=== PATIENT | female | born 1995 | race Caucasian/White ===

== ENCOUNTER 2017-09-01 21:55 | Emergency (ER) | payer SELFPAY ==
--- NOTE | 2017-09-01 23:26 | EDPHYS ---
Physician Documentation [facility] Name: Marisela Molina Age: 22 yrs Sex: Female : 1995 Arrival Date: 09/01/2017 Time: 21:55 Bed 19 Private MD: ED Physician Abhijit Bang HPI: 09/01 23:22 This 22 yrs old Female presents to ER via Ambulatory with complaints of arian Urinary Problem. 23:22 The patient presents with pelvic pain, that is located in/on the suprapubic area, arian urinary symptoms. Onset: The symptoms/episode began/occurred 2 day(s) ago. Modifying factors: The symptoms are alleviated by nothing, the symptoms are aggravated by nothing. Associated signs and symptoms: The patient has no apparent associated signs or symptoms. Severity of symptoms: At their worst the symptoms were mild, moderate, in the emergency department the symptoms are unchanged. The patient is sexually active. The patient has experienced similar episodes in the past, several times. 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 - Social history:: Smoking status: Patient/guardian denies using tobacco. - Ebola Screening: : Patient denies travel to an Ebola-affected area in the 21 days before illness onset. - Family history:: not pertinent. ROS: 23:22 Constitutional: Negative for fever, chills, and weight loss, Eyes: Negative for injury, arian pain, redness, and discharge, ENT: Negative for injury, pain, and discharge, Neck: Negative for injury, pain, and swelling, Cardiovascular: Negative for chest pain, palpitations, and edema, Respiratory: Negative for shortness of breath, cough, wheezing, and pleuritic chest pain, Back: Negative for injury and pain, MS/Extremity: Negative for injury and deformity, Skin: Negative for injury, rash, and discoloration, Neuro: Negative for headache, weakness, numbness, tingling, and seizure, Psych: Negative for depression, anxiety, suicide ideation, homicidal ideation, and hallucinations, Allergy/Immunology: Negative for hives, rash, and allergies, Endocrine: Negative for neck swelling, polydipsia, polyuria, polyphagia, and marked weight changes, Hematologic/Lymphatic: Negative for swollen nodes, abnormal bleeding, and unusual bruising. 23:22 Abdomen/GI: Positive for abdominal pain, of the suprapubic area, posterior aspect of right lateral abdomen and posterior aspect of left lateral abdomen. 23:22 : Positive for urinary symptoms, flank pain, urinary frequency, small amounts, burning with urination, difficulty urinating. Exam: 23:22 Constitutional: This is a well developed, well nourished patient who is awake, alert, arian and in no acute distress. Head/Face: Normocephalic, atraumatic. Eyes: Pupils equal round and reactive to light, extra-ocular motions intact. Lids and lashes normal. Conjunctiva and sclera are non-icteric and not injected. Cornea within normal limits. Periorbital areas with no swelling, redness, or edema. ENT: Nares patent. No nasal discharge, no septal abnormalities noted. Tympanic membranes are normal and external auditory canals are clear. Oropharynx with no redness, swelling, or masses, exudates, or evidence of obstruction, uvula midline. Mucous membranes moist. Neck: Trachea midline, no thyromegaly or masses palpated, and no cervical lymphadenopathy. Supple, full range of motion without nuchal rigidity, or vertebral point tenderness. No Meningismus. Chest/axilla: Normal chest wall appearance and motion. Nontender with no deformity. No lesions are appreciated. Cardiovascular: Regular rate and rhythm with a normal S1 and S2. No gallops, murmurs, or rubs. Normal PMI, no JVD. No pulse deficits. Respiratory: Lungs have equal breath sounds bilaterally, clear to auscultation and percussion. No rales, rhonchi or wheezes noted. No increased work of breathing, no retractions or nasal flaring. Back: No spinal tenderness. No costovertebral tenderness. Full range of motion. Female : Normal external genitalia. Skin: Warm, dry with normal turgor. Normal color with no rashes, no lesions, and no evidence of cellulitis. MS/ Extremity: Pulses equal, no cyanosis. Neurovascular intact. Full, normal range of motion. Neuro: Awake and alert, GCS 15, oriented to person, place, time, and situation. Cranial nerves II-XII grossly intact. Motor strength 5/5 in all extremities. Sensory grossly intact. Cerebellar exam normal. Normal gait. Psych: Awake, alert, with orientation to person, place and time. Behavior, mood, and affect are within normal limits. 23:22 Abdomen/GI: Inspection: distension, Bowel sounds: normal, Palpation: mild abdominal tenderness, in the suprapubic area, Liver: no appreciated palpable abnormalities, Hernia: not appreciated. Vital Signs: 22:00 BP 142 / 94; Pulse 103; Resp 18; Temp 97.7; Pulse Ox 97% on R/A; Weight 81.65 kg; aj1 Height 5 ft. 6 in. (167.64 cm) (R); Pain 9/10; 09/02 00:30 BP 135 / 84; Pulse 90; Resp 16; Pulse Ox 98% ; bp 09/01 22:00 Body Mass Index 29.05 (81.65 kg, 167.64 cm) aj1 MDM: 09/01 22:11 Patient medically screened. [facility] 23:24 Data reviewed: vital signs, nurses notes, lab test result(s), CBC, electrolytes, [facility] urinalysis. 09/01 23:09 Order name: Urine Dipstick--Ancillary (enter results); Complete Time: 00:08 09/01 23:20 Order name: CBC with Diff; Complete Time: 00:08 [facility] 09/01 23:20 Order name: Chem 7; Complete Time: 00:38 [facility] 09/01 23:20 Order name: Test, Serum; Complete Time: 00:38 [facility] 09/01 23:03 Order name: Urine Dipstick-Ancillary (obtain specimen); Complete Time: 23:03 bp 09/01 23:03 Order name: Urine Test (obtain specimen); Complete Time: 23:03 bp Administered Medications: 23:43 Drug: Cipro 500 mg Route: PO; bp 09/02 00:19 Follow up: Response: No adverse reaction bp 09/01 23:43 Drug: NS 0.9% 1000 ml Route: IV; Rate: 1 bolus; Site: right antecubital; bp 09/02 00:48 Follow up: IV Status: Completed infusion bp 09/01 23:43 Drug: Rocephin - (cefTRIAXone) 1 grams Route: IVPB; Infused Over: 30 mins; Site: right bp antecubital; 09/02 00:19 Follow up: IV Status: Completed infusion bp Disposition: 09/01/17 23:25 Discharged to Home. Impression: Cystitis, Dysuria. - Condition is Stable. - Discharge Instructions: Dysuria, Urinary Tract Infection, Urinary Tract Infection, [id number]. - Prescriptions for Tylenol- Codeine #3 300-30 mg Oral Tablet - take 2 tablets by ORAL route every 6 hours As needed; 15 tablet. Cipro 500 mg Oral Tablet - take 1 tablet by ORAL route every 12 hours for 7 days; 14 tablet. - Medication Reconciliation Form, Thank You Letter, Antibiotic Education, Prescription Opioid Use form. - Follow up: Private Physician; When: 2 - 3 days; Reason: Recheck today's complaints, Continuance of care, Re-evaluation by your physician. - Problem is new. - Symptoms have improved. Signatures: Dispatcher [employer] Laila Medel RN RN aj1 Abhijit Bang MD MD cha Peltier, Brian RN RN bp Corrections: (The following items were deleted from the chart) 00:49 09/01 23:25 09/01/2017 23:25 Discharged to Home. Impression: Cystitis; Dysuria. bp Condition is Stable. Forms are Medication Reconciliation Form, Thank You Letter, Antibiotic Education, Prescription Opioid Use. Follow up: Private Physician; When: 2 - 3 days; Reason: Recheck today's complaints, Continuance of care, Re-evaluation by your physician. Problem is new. Symptoms have improved. arian
--- NOTE | 2017-09-01 23:26 | ER ---
Nurse's Notes [facility] Name: Marisela Molina Age: 22 yrs Sex: Female : 1995 Arrival Date: 09/01/2017 Time: 21:55 Bed 19 Private MD: Diagnosis: Cystitis;Dysuria Presentation: 09/01 21:57 Presenting complaint: Patient states: Burning with urination and suprapubic pressure aj1 for the past 3 days. States she has been taking Azo, but they are not helping with the pain anymore. Denies fever. Transition of care: patient was not received from another setting of care. Onset of symptoms was August 29, 2017. Risk Assessment: Do you want to hurt yourself or someone else? Patient reports no desire to harm self or others. Initial Sepsis Screen: Does the patient meet any 2 criteria? No. Patient's initial sepsis screen is negative. Does the patient have a suspected source of infection? No. Patient's initial sepsis screen is negative. Care prior to arrival: None. 21:57 Method Of Arrival: Ambulatory aj1 21:57 Acuity: NING 4 aj1 Triage Assessment: 22:00 General: Appears in no apparent distress. uncomfortable, Behavior is calm, cooperative, aj1 appropriate for age. Pain: Complains of pain in suprapubic area Pain does not radiate. Pain currently is 9 out of 10 on a pain scale. Quality of pain is described as burning, Pain began 2-3 days ago. Is continuous, Aggravated by urinating. EENT: No signs and/or symptoms were reported regarding the EENT system. Neuro: Level of Consciousness is awake, alert, obeys commands, Oriented to person, place, time, situation. Cardiovascular: Patient's skin is warm and dry. Respiratory: Airway is patent Respiratory effort is even, unlabored, Respiratory pattern is regular, symmetrical. GI: : Reports burning with urination, urgency, urinary frequency, Denies discharge. Derm: No signs and/or symptoms reported regarding the dermatologic system. Skin is pink, warm \T\ dry. normal. Musculoskeletal: No signs and/or symptoms reported regarding the musculoskeletal system. Circulation, motion, and sensation intact. 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 - Social history:: Smoking status: Patient/guardian denies using tobacco. - Ebola Screening: : Patient denies travel to an Ebola-affected area in the 21 days before illness onset. - Family history:: not pertinent. Screenin:57 Abuse screen: Denies threats or abuse. Denies injuries from another. Nutritional bp screening: No deficits noted. Tuberculosis screening: No symptoms or risk factors identified. Fall Risk None identified. Assessment: 22:00 General: Appears in no apparent distress. comfortable, Behavior is calm, cooperative, bp appropriate for age. Pain: Denies pain. Neuro: Level of Consciousness is awake, alert, obeys commands, Oriented to person, place, time, situation, Appropriate for age. Cardiovascular: No deficits noted. Respiratory: Airway is patent Respiratory effort is even, unlabored, Respiratory pattern is regular, symmetrical. GI: No signs and/or symptoms were reported involving the gastrointestinal system. : Reports burning with urination. EENT: No deficits noted. Derm: No deficits noted. Musculoskeletal: Circulation, motion, and sensation intact. Range of motion: intact in all extremities. 23:45 Reassessment: PT TBDC AFTER IVF AND LAB RESULTS. bp 09/02 00:47 Reassessment: PT D/C HOME AMBULATORY WITH FAMILY, DX WITH CYSTITIS AND DYSURIA. bp Vital Signs: 09/01 22:00 BP 142 / 94; Pulse 103; Resp 18; Temp 97.7; Pulse Ox 97% on R/A; Weight 81.65 kg; aj1 Height 5 ft. 6 in. (167.64 cm) (R); Pain 9/10; 09/02 00:30 BP 135 / 84; Pulse 90; Resp 16; Pulse Ox 98% ; bp 09/01 22:00 Body Mass Index 29.05 (81.65 kg, 167.64 cm) aj1 ED Course: 09/01 21:55 Patient arrived in ED. es 22:00 Triage completed. aj1 22:00 Arm band placed on. aj1 22:03 Patient placed in an exam room. aj1 22:08 Maurice Johnson, RN is Primary Nurse. bp 22:11 Abhijit Bang MD is Attending Physician. [facility] 22:57 Patient has correct armband on for positive identification. Bed in low position. Call bp light in reach. Side rails up X2. Adult w/ patient. 23:30 Inserted saline lock: 20 gauge in right antecubital area, using aseptic technique. bp Blood collected. 09/02 00:47 No provider procedures requiring assistance completed. IV discontinued, intact, bp bleeding controlled, No redness/swelling at site. Pressure dressing applied. Administered Medications: 09/01 23:43 Drug: Cipro 500 mg Route: PO; bp 09/02 00:19 Follow up: Response: No adverse reaction bp 09/01 23:43 Drug: NS 0.9% 1000 ml Route: IV; Rate: 1 bolus; Site: right antecubital; bp 09/02 00:48 Follow up: IV Status: Completed infusion bp 09/01 23:43 Drug: Rocephin - (cefTRIAXone) 1 grams Route: IVPB; Infused Over: 30 mins; Site: right bp antecubital; 09/02 00:19 Follow up: IV Status: Completed infusion bp Outcome: 09/01 23:25 Discharge ordered by . [facility] 09/02 00:48 Discharged to home ambulatory, with family. bp Condition: stable Discharge instructions given to patient, Instructed on discharge instructions, follow up and referral plans. medication usage, Demonstrated understanding of instructions, follow-up care, medications, Prescriptions given X 2. 00:49 Patient left the ED. bp Signatures: Laila Shields, RN RN aj1 Abhijit Bang MD MD cha Salyer, Edna es Peltier, Brian RN RN bp
[2017-09-01] MEDS ORDERED: CEFTRIAXONE/SWI 1gm 1 GM/10 ML SYR ONE (23:40)
[2017-09-01] MEDS ORDERED: CIPROFLOXACIN HCL 500 MG TAB ONE (23:40)
[2017-09-01] MEDS ORDERED: NA CHLORIDE 0.9% 1,000 ML ONE (23:41)
[2017-09-01 23:47] LABS: Absolute Lymphocytes (CBC) 3.5 K/uL (0.7-4.9); Absolute Neutrophil 12.3 K/uL (1.8-8.0); Basophils % 0.8 % (0-1.3); Eosinophils % 0.3 % (0-4.4); Hematocrit 42.8 % (36.0-45.0); Lymphocytes % 20.6 % (15.3-44.8); MCH 28.5 pg (27.0-35.0); MCV 84.1 fL (80-100); MPV 8.6 fL (7.6-11.3); RBC Red Blood Cell Count 5.08 M/uL (3.86-4.86)
[2017-09-01 23:48] LABS: Urine Blood 3+ (NEG); Urine Glucose 1+ (NEG); Urine Protein 3+ (NEG); Urine Specific Gravity 1.005 (1.005-1.030)
[2017-09-02 00:02] LABS: BUN Blood Urea Nitrogen 9 mg/dL (7-18); Bicarbonate 29 mmol/L (21-32); Glucose Level 83 mg/dL (74-106); Potassium 3.5 mmol/L (3.5-5.1); Sodium Level 136 mmol/L (136-145)
== END 2017-09-02 00:49 | disposition home or self-care (01) ==
LOC: ER 21:55
DX: N30.90 Cystitis, unspecified without hematuria (principal)
CPT/HCPCS: 36415; 80048; 81003; 84703; 85025; 96365; 99284; J0696; J7030

== ENCOUNTER 2022-07-31 22:41 | Emergency (ER) | payer OTHER, SELFPAY ==
--- OUTSIDE RECORDS SUMMARY | 2022-07-31 22:47 | XMS REPORT | Continuity of Care Document ---
:1995 Author Organization [facility] t Address [address] [facility] [address] [place] [id number] Care Team Providers Name Role Phone ZOHREH ALVARADO Primary Care Physician Unavailable KAIT ARZATE Attending Clinician Unavailable Kait Arzate MD Attending Clinician Ultrasound, Adc Mfm Attending Clinician Unavailable Andriy Billy MD Attending Clinician ANDRIY BILLY Attending Clinician Unavailable Pob, Adc Lab Main Attending Clinician Unavailable 2, Adc Lab Attending Clinician Unavailable Jolene Verdugo RN Attending Clinician Unavailable Amalia Victoria PA-C Attending Clinician Doctor Unassigned, [place] Attending Clinician Unavailable ROSANNA HOWARD Attending Clinician Unavailable Zohreh Berumen Attending Clinician Lab, Ang - Db Attending Clinician Unavailable ZOHREH ALVARADO Attending Clinician Unavailable JAZZY SALAZAR Attending Clinician Unavailable Payers Payer Name Policy Type Policy Number Effective Date Expiration Date S ource MEDICAID [place] [id number] 2022 00:00:00 Problems Condition Condition Condition Status Onset Resolution Last Treating Co mments Source Name Details Category Date Date Treatment Clinician Date High-risk High-risk Disease Active Uni vers 2-20 ity of in second in second 00:00: Gladys s trimester trimester 00 [facility] Branch Obesity Obesity Disease Active Univers (BMI (BMI 2-20 ity of 30-39.9) 30-39.9) 00:00: [address] Branch Obesity in Obesity in Disease Active U nivers 2-20 ity of 00:: [place] [facility] Nausea and Nausea and Disease Active U nivers vomiting vomiting 2-20 ity of during during 00:: [place] 00 Medi ty prior to prior to Branch 22 weeks 22 weeks gestation gestation Gastroesop Gastroesop Disease Active U nivers hageal hageal 2-20 ity of reflux reflux 00:00: [place] disease, disease, 00 Medica l unspecifie unspecifie Br anch d whether d whether esophagiti esophagiti s present s present Skin Skin Disease Active Univers lesion lesion 2-20 ity of 00:: [place] [facility] Absence of Absence of Disease Active U nivers menstruati menstruati 8-05 it y of on on 00:: [place] [address] Medical [place] Venereal Venereal Disease Active Unive rs disease disease 8-05 ity of contact contact 00:00: [place] [address] Medical [place] Allergies, Adverse Reactions, Alerts Allergy Allergy Status Severity Reaction(s) Onset Inactive Treating Comm ents Source Name Type Date Date Clinician NO KNOWN Drug Active Univers ALLERGIE Class ity of S [facility] Social History Social Habit Start Date Stop Date Quantity Comments Source ASSERTION 2022-03-08 Mobile of 00:00:00 [facility] History [facility] o f Alcohol Std [place] [facility] Branch History [facility] o f Alcohol Binge [facility] [place] Exposure to 2022-07-18 2022-07-28 Not sure [facility] SARS-CoV-2 00:00:00 13:15:00 [facility] (event) Branch Alcohol intake 2022-07-28 2022-07-28 Ex-drinker Mobile of 00:00:00 00:00:00 (finding) [facility] Tobacco use and 2022-05-04 2022-05-04 Smokeless tobacco Un iversity of exposure 00:00:00 00:00:00 non-user [facility] Alcohol Comment 2021-01-17 2021-01-17 very rarely Universi ty of 00:00:00 00:00:00 [facility] History SDOH 2018-10-17 2018-10-17 1 University o f Alcohol Frequency 00:00:00 00:00:00 [facility] edical [place] Sex Assigned At [birth year] [facility] y of 00:00:00 00:00:00 [facility] Smoking Status Start Date Stop Date Source Never smoked tobacco [facility] [place] Medications Ordered Filled Start Stop Current Ordering Indication Dosage Frequency Signature Comments Components Source Medication Medication Date Date Medication? Clinician (SIG) Name Name pantoprazol Yes Take by Uni vers e sodium 5-16 mouth. ity of (PANTOPRAZO 14:36: [place] LE ORAL) 09 Medical Branch pantoprazol 2022- No pantoprazo Univers e 40 mg EC 4-04 04-04 le 40 mg ity of tablet 09:30: 00[place]00 [facility]ed [facility] Branch pantoprazol Yes Take by Uni vers e sodium 4-04 mouth. ity of (PANTOPRAZO 09:23: [place] LE ORAL) 41 Medical Branch pantoprazol Yes Take by Uni vers e sodium 4-04 mouth. ity of (PANTOPRAZO 09:23: [place] LE ORAL) 41 Medical Branch pantoprazol Yes Take by Uni vers e sodium 4-04 mouth. ity of (PANTOPRAZO 09:23: [place] LE ORAL) 41 Medical Branch pantoprazol Yes Take by Uni vers e sodium 4-04 mouth. ity of (PANTOPRAZO 09:23: [place] LE ORAL) 41 [facility] Branch pantoprazol Yes Take by Uni vers e sodium 4-04 mouth. ity of (PANTOPRAZO 09:23: [place] LE ORAL) 41 Medical Branch pantoprazol Yes Take by Uni vers e sodium 4-04 mouth. ity of (PANTOPRAZO 09:23: [place] LE ORAL) 41 Medical Branch pantoprazol Yes Take by Uni vers e sodium 4-04 mouth. ity of (PANTOPRAZO 09:23: [place] LE ORAL) 41 [facility] Branch pantoprazol Yes Take by Uni vers e sodium 4-04 mouth. ity of (PANTOPRAZO 09:23: [place] LE ORAL) 41 Medical Branch pantoprazol 2022- Yes 40mg Take 1 Uni vers e 40 mg EC 4-04 -03 tablet by ity of tablet 00:00: 04:59 mouth in [place] 00 :00 the Medical morning Branch for 120 days. pantoprazol 2023-0 2023- Yes 40mg Take 1 Uni vers e 40 mg EC 4-04 08-03 tablet by ity of tablet 00:00: 04:59 mouth in [place] 00 :00 the Medical morning Branch for 120 days. pantoprazol 2023-0 2023- Yes 40mg Take 1 Uni vers e 40 mg EC 4-04 08-03 tablet by ity of tablet 00:00: 04:59 mouth in [place] 00 :00 the Medical morning Branch for 120 days. pantoprazol 2023-0 2023- Yes 40mg Take 1 Uni vers e 40 mg EC 4- 08-03 tablet by ity of tablet 00:00: 04:59 mouth in [place] 00 :00 the [facility] morning Branch for 120 days. pantoprazol 2023-0 3- Yes 40mg Take 1 Uni vers e 40 mg EC 4-06 20-03 tablet by ity of tablet 00:00: 04:59 mouth in [place] 00 :00 the Medical morning Branch for 120 days. pantoprazol 2023-0 2023- Yes 40mg Take 1 Uni vers e 40 mg EC 4-06 20-03 tablet by ity of tablet 00:00: 04:59 mouth in [place] 00 :00 the [facility] Branch for 120 days. pantoprazol 2023-0 2023- Yes 40mg Take 1 Uni vers e 40 mg EC 4-04 08-03 tablet by ity of tablet 00:00: 04:59 mouth in [place] 00 :00 the [facility] morning Branch for 120 days. pantoprazol 2023-0 2023- Yes 40mg Take 1 Uni vers e 40 mg EC 4-06 20-03 tablet by ity of tablet 00:00: 04:59 mouth in [place] 00 :00 the [facility] morning Branch for 120 days. pantoprazol 2023-0 2023- Yes 40mg Take 1 Uni vers e 40 mg EC 4-04 08-03 tablet by ity of tablet 00:00: 04:59 mouth in [place] 00 :00 the [facility] Branch for 120 days. pantoprazol 2023-0 Yes Take by Uni vers e sodium 3-22 mouth. ity of (PANTOPRAZO 10:31: [place] LE ORAL) 25 [facility] Branch pantoprazol 2023-0 Yes Take by Uni vers e sodium 3-22 mouth. ity of (PANTOPRAZO 10:31: [place] LE ORAL) 25 Medical Branch pantoprazol Yes Take by Uni vers e sodium 3-22 mouth. ity of (PANTOPRAZO 10:31: [place] LE ORAL) 25 Medical Branch pantoprazol Yes Take by Uni vers e sodium 3-22 mouth. ity of (PANTOPRAZO 10:31: [place] LE ORAL) 25 Medical Branch metroNIDAZO 2022- Yes [id number] 500mg Take 1 Univers LE (FLAGYL) 05-06 tablet by it y of 500 mg 00:00: 05:59 mouth in [place] tablet 00 :00 the Medical morning Branch and 1 tablet in the evening. Do all this for 7 days. pantoprazol 2022- No 40mg Take 40 mg Univers e 40 mg EC -05-04 by mouth ity of tablet 11:22: 00:00 daily. [place] 55 :00 Medical Branch PNV 0 Yes Take by Univers no.95/jens 2-20 mouth. ity of 11:09: [place] fum/folic 15 Medical ac Branch ( ORAL) PNV 0 Yes Take by Univers no.95/jens 2-20 mouth. ity of 11:09: [place] fum/folic 15 Medical ac Branch ( ORAL) PNV 0 Yes Take by Univers no.95/jens 2-20 mouth. ity of 11:09: [place] fum/folic 15 Medical ac Branch ( ORAL) PNV 0 Yes Take by Univers no.95/jens 2-20 mouth. ity of 11:09: [place] fum/folic 15 Medical ac Branch ( ORAL) PNV 0 Yes Take by Univers no.95/jens 2-20 mouth. ity of 11:09: [place] fum/folic 15 Medical ac Branch ( ORAL) PNV 0 Yes Take by Univers no.95/jens 2-20 mouth. ity of 11:09: [place] fum/folic 15 Medical ac Branch ( ORAL) PNV 0 Yes Take by Univers no.95/jens 2-20 mouth. ity of 11:09: [place] fum/folic 15 Medical ac Branch ( ORAL) PNV 0 Yes Take by Univers no.95/jens 2-20 mouth. ity of us 11:09: [place] fum/folic 15 Medical ac Branch ( ORAL) PNV 2022-0 Yes Take by Univers no.95/jens 2-20 mouth. ity of us 11:09: [place] fum/folic 15 Medical ac Branch ( ORAL) PNV 2022-0 Yes Take by Univers no.95/jens 2-20 mouth. ity of us 11:09: [place] fum/folic 15 Medical ac Branch ( ORAL) PNV 2022-0 Yes Take by Univers no.95/jens 2-20 mouth. ity of us 11:09: [place] fum/folic 15 Medical ac Branch ( ORAL) PNV 2022-0 Yes Take by Univers no.95/jens 2-20 mouth. ity of us 11:09: [place] fum/folic 15 Medical ac Branch ( ORAL) PNV 2022-0 Yes Take by Univers no.95/jens 2-20 mouth. ity of us 11:09: [place] fum/folic 15 Medical ac Branch ( ORAL) PNV 2022-0 Yes Take by Univers no.95/jens 2-20 mouth. ity of us 11:09: [place] fum/folic 15 Medical ac Branch ( ORAL) PNV 2022-0 Yes Take by Univers no.95/jens 2-20 mouth. ity of us 11:09: [place] fum/folic 15 Medical ac Branch ( ORAL) PNV 2022-0 Yes Take by Univers no.95/jens 2-20 mouth. ity of us 11:09: [place] fum/folic 15 Medical ac Branch ( ORAL) PNV 2022-0 Yes Take by Univers no.95/jens 2-20 mouth. ity of us 11:09: [place] fum/folic 15 Medical ac Branch ( ORAL) PNV 2022-0 Yes Take by Univers no.95/jens 2-20 mouth. ity of us 11:09: [place] fum/folic 15 Medical ac Branch ( ORAL) PNV 2022-0 Yes Take by Univers no.95/jens 2-20 mouth. ity of us 11:09: [place] fum/folic 15 Medical ac Branch ( ORAL) PNV 2022-0 Yes Take by Univers no.95/jens 2-20 mouth. ity of us 11:09: [place] fum/folic 15 Medical ac Branch ( ORAL) PNV 0 Yes Take by Univers no.95/jens 2-20 mouth. ity of us 11:09: [place] fum/folic 15 Medical ac Branch ( ORAL) PNV 0 Yes Take by Univers no.95/jens 2-20 mouth. ity of us 11:09: [place] fum/folic 15 Medical ac Branch ( ORAL) pyridoxine, 0 Yes [id number] 25mg Take 1 Univers VITAMIN 2-20 tablet by ity of B-6, 00:00: mouth [place] (VITAMIN 00 every 6 Medical B-6) 25 mg (six) Branch tablet hours as needed for Nausea and Vomiting (N/V). doxylamine 0 Yes [id number] 25mg Take 1 U nivers (UNISOM, 2-20 tablet by ity of DOXYLAMINE, 00:00: [place] 25 mg 00 bedtime as Medica l tablet needed for Branch Nausea and Vomiting (N/V). metoclopram 0 Yes [id number] 10mg Take 1 Univers melissa HCl 10 2-20 tablet by ity of mg tablet 00:00: mouth [place] 00 every 6 Medical (six) Branch hours as needed for Nausea and Vomiting (N/V). pyridoxine, 2022-0 Yes [id number] 25mg Take 1 Univers VITAMIN 2-20 tablet by ity of B-6, 00:00: mouth [place] (VITAMIN 00 every 6 Medical B-6) 25 mg (six) Branch tablet hours as needed for Nausea and Vomiting (N/V). doxylamine 0 Yes [id number] 25mg Take 1 U nivers (UNISOM, 2-20 tablet by ity of DOXYLAMINE, 00:00: [place] 25 mg 00 bedtime as Medica l tablet needed for Branch Nausea and Vomiting (N/V). metoclopram 2022-0 Yes [id number] 10mg Take 1 Univers melissa HCl 10 2-20 tablet by ity of mg tablet 00:00: mouth [place] 00 every 6 Medical (six) Branch hours as needed for Nausea and Vomiting (N/V). pyridoxine, 2022-0 Yes [id number] 25mg Take 1 Univers VITAMIN 2-20 tablet by ity of B-6, 00:00: mouth [place] (VITAMIN 00 every 6 Medical B-6) 25 mg (six) Branch tablet hours as needed for Nausea and Vomiting (N/V). doxylamine 2023-0 Yes [id number] 25mg Take 1 U nivers (UNISOM, 2-20 tablet by ity of DOXYLAMINE, 00:00: [place] 25 mg 00 bedtime as Medica l tablet needed for Branch Nausea and Vomiting (N/V). metoclopram 2023-0 Yes [id number] 10mg Take 1 Univers melissa HCl 10 2-20 tablet by ity of mg tablet 00:00: mouth [place] 00 every 6 Medical (six) Branch hours as needed for Nausea and Vomiting (N/V). pyridoxine, 3-0 Yes [id number] 25mg Take 1 Univers VITAMIN 2-20 tablet by ity of B-6, 00:00: mouth [place] (VITAMIN 00 every 6 Medical B-6) 25 mg (six) Branch tablet hours as needed for Nausea and Vomiting (N/V). doxylamine 3-0 Yes [id number] 25mg Take 1 U nivers (UNISOM, 2-20 tablet by ity of DOXYLAMINE, 00:00: [place] 25 mg 00 bedtime as Medica l tablet needed for Branch Nausea and Vomiting (N/V). metoclopram 3-0 Yes [id number] 10mg Take 1 Univers melissa HCl 10 2-20 tablet by ity of mg tablet 00:00: mouth [place] 00 every 6 Medical (six) Branch hours as needed for Nausea and Vomiting (N/V). pyridoxine, 3-0 Yes [id number] 25mg Take 1 Univers VITAMIN 2-20 tablet by ity of B-6, 00:00: mouth [place] (VITAMIN 00 every 6 Medical B-6) 25 mg (six) Branch tablet hours as needed for Nausea and Vomiting (N/V). doxylamine 2023-0 Yes [id number] 25mg Take 1 U nivers (UNISOM, 2-20 tablet by ity of DOXYLAMINE, 00:00: [place] 25 mg 00 bedtime as Medica l tablet needed for Branch Nausea and Vomiting (N/V). metoclopram 2023-0 Yes [id number] 10mg Take 1 Univers melissa HCl 10 2-20 tablet by ity of mg tablet 00:00: mouth [place] 00 every 6 Medical (six) Branch hours as needed for Nausea and Vomiting (N/V). pyridoxine, 2022-0 Yes [id number] 25mg Take 1 Univers VITAMIN 2-20 tablet by ity of B-6, 00:00: mouth [place] (VITAMIN 00 every 6 Medical B-6) 25 mg (six) Branch tablet hours as needed for Nausea and Vomiting (N/V). doxylamine 2022-0 Yes [id number] 25mg Take 1 U nivers (UNISOM, 2-20 tablet by ity of DOXYLAMINE, 00:00: [place] ) 25 mg 00 bedtime as Medica l tablet needed for Branch Nausea and Vomiting (N/V). metoclopram 2022-0 Yes [id number] 10mg Take 1 Univers melissa HCl 10 2-20 tablet by ity of mg tablet 00:00: mouth [place] 00 every 6 Medical (six) Branch hours as needed for Nausea and Vomiting (N/V). pyridoxine, 2022-0 Yes [id number] 25mg Take 1 Univers VITAMIN 2-20 tablet by ity of B-6, 00:00: mouth [place] (VITAMIN 00 every 6 Medical B-6) 25 mg (six) Branch tablet hours as needed for Nausea and Vomiting (N/V). doxylamine 2022-0 Yes [id number] 25mg Take 1 U nivers (UNISOM, 2-20 tablet by ity of DOXYLAMINE, 00:00: [place] 25 mg 00 bedtime as Medica l tablet needed for Branch Nausea and Vomiting (N/V). metoclopram 2022-0 Yes [id number] 10mg Take 1 Univers melissa HCl 10 2-20 tablet by ity of mg tablet 00:00: mouth [place] 00 every 6 Medical (six) Branch hours as needed for Nausea and Vomiting (N/V). pyridoxine, 2022-0 Yes [id number] 25mg Take 1 Univers VITAMIN 2-20 tablet by ity of B-6, 00:00: mouth [place] (VITAMIN 00 every 6 Medical B-6) 25 mg (six) Branch tablet hours as needed for Nausea and Vomiting (N/V). doxylamine 2023-0 Yes [id number] 25mg Take 1 U nivers (UNISOM, 2-20 tablet by ity of DOXYLAMINE, 00:00: [place] 25 mg 00 bedtime as Medica l tablet needed for Branch Nausea and Vomiting (N/V). metoclopram 2023-0 Yes [id number] 10mg Take 1 Univers melissa HCl 10 2-20 tablet by ity of mg tablet 00:00: mouth [place] 00 every 6 Medical (six) Branch hours as needed for Nausea and Vomiting (N/V). pyridoxine, 2022-0 Yes [id number] 25mg Take 1 Univers VITAMIN 2-20 tablet by ity of B-6, 00:00: mouth [place] (VITAMIN 00 every 6 Medical B-6) 25 mg (six) Branch tablet hours as needed for Nausea and Vomiting (N/V). doxylamine 2023-0 Yes [id number] 25mg Take 1 U nivers (UNISOM, 2-20 tablet by ity of DOXYLAMINE, 00:00: [place] ) 25 mg 00 bedtime as Medica l tablet needed for Branch Nausea and Vomiting (N/V). metoclopram 3-0 Yes [id number] 10mg Take 1 Univers melissa HCl 10 2-20 tablet by ity of mg tablet 00:00: mouth [place] 00 every 6 Medical (six) Branch hours as needed for Nausea and Vomiting (N/V). pyridoxine, 3-0 Yes [id number] 25mg Take 1 Univers VITAMIN 2-20 tablet by ity of B-6, 00:00: mouth [place] (VITAMIN 00 every 6 Medical B-6) 25 mg (six) Branch tablet hours as needed for Nausea and Vomiting (N/V). doxylamine 2023-0 Yes [id number] 25mg Take 1 U nivers (UNISOM, 2-20 tablet by ity of DOXYLAMINE, 00:00: [place] ) 25 mg 00 bedtime as Medica l tablet needed for Branch Nausea and Vomiting (N/V). metoclopram 2023-0 Yes [id number] 10mg Take 1 Univers melissa HCl 10 2-20 tablet by ity of mg tablet 00:00: mouth [place] 00 every 6 Medical (six) Branch hours as needed for Nausea and Vomiting (N/V). pyridoxine, 3-0 Yes [id number] 25mg Take 1 Univers VITAMIN 2-20 tablet by ity of B-6, 00:00: mouth [place] (VITAMIN 00 every 6 Medical B-6) 25 mg (six) Branch tablet hours as needed for Nausea and Vomiting (N/V). doxylamine 2022-0 Yes [id number] 25mg Take 1 U nivers (UNISOM, 2-20 tablet by ity of DOXYLAMINE, 00:00: [place] ) 25 mg 00 bedtime as Medica l tablet needed for Branch Nausea and Vomiting (N/V). metoclopram 2023-0 Yes [id number] 10mg Take 1 Univers melissa HCl 10 2-20 tablet by ity of mg tablet 00:00: mouth [place] 00 every 6 Medical (six) Branch hours as needed for Nausea and Vomiting (N/V). pyridoxine, 2022-0 Yes [id number] 25mg Take 1 Univers VITAMIN 2-20 tablet by ity of B-6, 00:00: mouth [place] (VITAMIN 00 every 6 Medical B-6) 25 mg (six) Branch tablet hours as needed for Nausea and Vomiting (N/V). doxylamine 2022-0 Yes [id number] 25mg Take 1 U nivers (UNISOM, 2-20 tablet by ity of DOXYLAMINE, 00:00: [place] ) 25 mg 00 bedtime as Medica l tablet needed for Branch Nausea and Vomiting (N/V). metoclopram 3-0 Yes [id number] 10mg Take 1 Univers melissa HCl 10 2-20 tablet by ity of mg tablet 00:00: mouth [place] 00 every 6 Medical (six) Branch hours as needed for Nausea and Vomiting (N/V). pyridoxine, 3-0 Yes [id number] 25mg Take 1 Univers VITAMIN 2-20 tablet by ity of B-6, 00:00: mouth [place] (VITAMIN 00 every 6 Medical B-6) 25 mg (six) Branch tablet hours as needed for Nausea and Vomiting (N/V). doxylamine 2023-0 Yes [id number] 25mg Take 1 U nivers (UNISOM, 2-20 tablet by ity of DOXYLAMINE, 00:00: [place] 25 mg 00 bedtime as Medica l tablet needed for Branch Nausea and Vomiting (N/V). metoclopram 2023-0 Yes [id number] 10mg Take 1 Univers melissa HCl 10 2-20 tablet by ity of mg tablet 00:00: mouth [place] 00 every 6 Medical (six) Branch hours as needed for Nausea and Vomiting (N/V). pyridoxine, 3-0 Yes [id number] 25mg Take 1 Univers VITAMIN 2-20 tablet by ity of B-6, 00:00: mouth [place] (VITAMIN 00 every 6 Medical B-6) 25 mg (six) Branch tablet hours as needed for Nausea and Vomiting (N/V). doxylamine 2023-0 Yes [id number] 25mg Take 1 U nivers (UNISOM, 2-20 tablet by ity of DOXYLAMINE, 00:00: [place] 25 mg 00 bedtime as Medica l tablet needed for Branch Nausea and Vomiting (N/V). metoclopram 3-0 Yes [id number] 10mg Take 1 Univers melissa HCl 10 2-20 tablet by ity of mg tablet 00:00: mouth [place] 00 every 6 Medical (six) Branch hours as needed for Nausea and Vomiting (N/V). pyridoxine, 2022-0 Yes [id number] 25mg Take 1 Univers VITAMIN 2-20 tablet by ity of B-6, 00:00: mouth [place] (VITAMIN 00 every 6 Medical B-6) 25 mg (six) Branch tablet hours as needed for Nausea and Vomiting (N/V). doxylamine 3-0 Yes [id number] 25mg Take 1 U nivers (UNISOM, 2-20 tablet by ity of DOXYLAMINE, 00:00: [place] 25 mg 00 bedtime as Medica l tablet needed for Branch Nausea and Vomiting (N/V). metoclopram 3-0 Yes [id number] 10mg Take 1 Univers melissa HCl 10 2-20 tablet by ity of mg tablet 00:00: mouth [place] 00 every 6 Medical (six) Branch hours as needed for Nausea and Vomiting (N/V). pyridoxine, 2023-0 Yes [id number] 25mg Take 1 Univers VITAMIN 2-20 tablet by ity of B-6, 00:00: mouth [place] (VITAMIN 00 every 6 Medical B-6) 25 mg (six) Branch tablet hours as needed for Nausea and Vomiting (N/V). doxylamine 2023-0 Yes [id number] 25mg Take 1 U nivers (UNISOM, 2-20 tablet by ity of DOXYLAMINE, 00:00: [place] 25 mg 00 bedtime as Medica l tablet needed for Branch Nausea and Vomiting (N/V). metoclopram 2023-0 Yes [id number] 10mg Take 1 Univers melissa HCl 10 2-20 tablet by ity of mg tablet 00:00: mouth [place] 00 every 6 Medical (six) Branch hours as needed for Nausea and Vomiting (N/V). pyridoxine, 2022-0 Yes [id number] 25mg Take 1 Univers VITAMIN 2-20 tablet by ity of B-6, 00:00: mouth [place] (VITAMIN 00 every 6 Medical B-6) 25 mg (six) Branch tablet hours as needed for Nausea and Vomiting (N/V). doxylamine 2023-0 Yes [id number] 25mg Take 1 U nivers (UNISOM, 2-20 tablet by ity of DOXYLAMINE, 00:00: [place] 25 mg 00 bedtime as Medica l tablet needed for Branch Nausea and Vomiting (N/V). metoclopram 2023-0 Yes [id number] 10mg Take 1 Univers melissa HCl 10 2-20 tablet by ity of mg tablet 00:00: mouth [place] 00 every 6 Medical (six) Branch hours as needed for Nausea and Vomiting (N/V). pyridoxine, 3-0 Yes [id number] 25mg Take 1 Univers VITAMIN 2-20 tablet by ity of B-6, 00:00: mouth [place] (VITAMIN 00 every 6 Medical B-6) 25 mg (six) Branch tablet hours as needed for Nausea and Vomiting (N/V). doxylamine 2023-0 Yes [id number] 25mg Take 1 U nivers (UNISOM, 2-20 tablet by ity of DOXYLAMINE, 00:00: [place] 25 mg 00 bedtime as Medica l tablet needed for Branch Nausea and Vomiting (N/V). metoclopram 2023-0 Yes [id number] 10mg Take 1 Univers melissa HCl 10 2-20 tablet by ity of mg tablet 00:00: mouth [place] 00 every 6 Medical (six) Branch hours as needed for Nausea and Vomiting (N/V). pyridoxine, 2022-0 Yes [id number] 25mg Take 1 Univers VITAMIN 2-20 tablet by ity of B-6, 00:00: mouth [place] (VITAMIN 00 every 6 Medical B-6) 25 mg (six) Branch tablet hours as needed for Nausea and Vomiting (N/V). doxylamine 2022-0 Yes [id number] 25mg Take 1 U nivers (UNISOM, 2-20 tablet by ity of DOXYLAMINE, 00:00: [place] 25 mg 00 bedtime as Medica l tablet needed for Branch Nausea and Vomiting (N/V). metoclopram 2022-0 Yes [id number] 10mg Take 1 Univers melissa HCl 10 2-20 tablet by ity of mg tablet 00:00: mouth [place] 00 every 6 Medical (six) Branch hours as needed for Nausea and Vomiting (N/V). pyridoxine, 2022-0 Yes [id number] 25mg Take 1 Univers VITAMIN 2-20 tablet by ity of B-6, 00:00: mouth [place] (VITAMIN 00 every 6 Medical B-6) 25 mg (six) Branch tablet hours as needed for Nausea and Vomiting (N/V). doxylamine 2022-0 Yes [id number] 25mg Take 1 U nivers (UNISOM, 2-20 tablet by ity of DOXYLAMINE, 00:00: [place] 25 mg 00 bedtime as Medica l tablet needed for Branch Nausea and Vomiting (N/V). metoclopram 2022-0 Yes [id number] 10mg Take 1 Univers melissa HCl 10 2-20 tablet by ity of mg tablet 00:00: mouth [place] 00 every 6 Medical (six) Branch hours as needed for Nausea and Vomiting (N/V). pyridoxine, 2022-0 Yes [id number] 25mg Take 1 Univers VITAMIN 2-20 tablet by ity of B-6, 00:00: mouth [place] (VITAMIN 00 every 6 Medical B-6) 25 mg (six) Branch tablet hours as needed for Nausea and Vomiting (N/V). doxylamine 3-0 Yes [id number] 25mg Take 1 U nivers (UNISOM, 2-20 tablet by ity of DOXYLAMINE, 00:00: [place] 25 mg 00 bedtime as Medica l tablet needed for Branch Nausea and Vomiting (N/V). metoclopram 3-0 Yes [id number] 10mg Take 1 Univers melissa HCl 10 2-20 tablet by ity of mg tablet 00:00: mouth [place] 00 every 6 Medical (six) Branch hours as needed for Nausea and Vomiting (N/V). pyridoxine, 2022-0 Yes [id number] 25mg Take 1 Univers VITAMIN 2-20 tablet by ity of B-6, 00:00: mouth [place] (VITAMIN 00 every 6 Medical B-6) 25 mg (six) Branch tablet hours as needed for Nausea and Vomiting (N/V). doxylamine 2022-0 Yes [id number] 25mg Take 1 U nivers (UNISOM, 2-20 tablet by ity of DOXYLAMINE, 00:00: [place] 25 mg 00 bedtime as Medica l tablet needed for Branch Nausea and Vomiting (N/V). metoclopram 2022-0 Yes [id number] 10mg Take 1 Univers melissa HCl 10 2-20 tablet by ity of mg tablet 00:00: mouth [place] 00 every 6 Medical (six) Branch hours as needed for Nausea and Vomiting (N/V). cephALEXin 2020-03- No [id number] 500mg Take 1 Univers (KEFLEX) 03-2014 capsule by ity of 500 mg 00:00: 05:59 mouth 3 [place] capsule 00 :00 (three) Medical times Branch daily for 7 days. cephALEXin 2020-03- No [id number] 500mg Take 1 Univers (KEFLEX) 03-20 11-14 capsule by ity of 500 mg 00:00: 05:59 mouth 3 [place] capsule 00 :00 (three) Medical times Branch daily for 7 days. pantoprazol 2020-03 Yes 40mg Take 40 mg Univers e 40 mg EC 1-05 by mouth ity o f tablet 09:08: daily. [address] pantoprazol 2020-03 Yes 40mg Take 40 mg Univers e 40 mg EC 1-05 by mouth ity o f tablet 09:08: daily. [address] pantoprazol 2020-03 Yes 40mg Take 40 mg Univers e 40 mg EC 1-05 by mouth ity o f tablet 09:08: daily. [address] Vital Signs Vital Name Observation Time Observation Value Comments Source Systolic blood 2022-07-28 19:32:00 125 mm[Hg] Univer [facility]ity [facility] Diastolic blood 2022-07-28 19:32:00 75 mm[Hg] Unive rsity of [facility] Heart rate 2022-07-28 19:32:00 87 /min [facility] ty [facility] Body temperature 2022-07-28 19:32:00 36.83 [facility] 2022-07-28 19:32:00 18 /min [facility] Body height 2022-07-28 19:32:00 167.6 cm Universi ty [facility] Body weight 2022-07-28 19:32:00 94.711 kg Universi ty [facility] BMI 2022-07-28 19:32:00 33.70 kg/m2 Universi ty [facility] Oxygen saturation in 2022-07-28 19:32:00 99 /min University Arterial blood by [facility] Pulse oximetry Branch Systolic blood 2022-07-02 20:53:00 136 mm[Hg] Univer sity of [facility] Diastolic blood 2022-07-02 20:53:00 83 mm[Hg] Unive rsity of [facility] Heart rate 2022-07-02 20:53:00 85 /min Universi ty [facility] Body temperature 2022-07-02 20:53:00 36.72 Paula Univ ersity [facility] Body height 2022-07-02 20:53:00 167.6 cm [facility]i ty [facility] Body weight 2022-07-02 20:53:00 90.719 kg Universi ty [facility] BMI 2022-07-02 20:53:00 32.28 kg/m2 Universi ty [facility] Systolic blood 2022-06-03 15:30:00 121 mm[Hg] Univer sity of [facility] Diastolic blood 2022-06-03 15:30:00 78 mm[Hg] Unive [facility]ity [facility] Heart rate 2022-06-03 15:30:00 88 /min [facility] Body temperature 2022-06-03 15:30:00 36.56 Paula Univ [facility] Body height 2022-06-03 15:30:00 167.6 cm [facility] Body weight 2022-06-03 15:30:00 88.542 kg [facility] BMI 2022-06-03 15:30:00 31.51 kg/m2 [facility] Systolic blood 2022-05-04 17:02:00 138 mm[Hg] Univer [facility]ity [facility] Diastolic blood 2022-05-04 17:02:00 84 mm[Hg] Unive rsity of [facility] Heart rate 2022-05-04 17:02:00 82 /min [facility] Body temperature 2022-05-04 17:02:00 37 Paula Univ [facility] Body height 2022-05-04 17:02:00 167.6 cm [facility] Body weight 2022-05-04 17:02:00 88.089 kg [facility] BMI 2022-05-04 17:02:00 31.34 kg/m2 [facility] Systolic blood 2021-01-17 14:10:00 133 mm[Hg] Univer sity of [facility] Diastolic blood 2021-01-17 14:10:00 81 mm[Hg] Unive rsity of [facility] Heart rate 2021-01-17 14:09:00 86 /min [facility] Body height 2021-01-17 14:09:00 170.2 cm [facility] Body weight 2021-01-17 14:09:00 81.647 kg [facility] BMI 2021-01-17 14:09:00 28.19 kg/m2 [facility] Oxygen saturation in 2021-01-17 14:09:00 99 /min University Arterial blood by [facility] Pulse oximetry Branch Procedures Procedure Date / Time Performing Clinician Source Performed POCT URINALYSIS W/O 2022-07-28 00:00:00 ArzateKait Jfefrey [facility] SPECIFIC GRAVITY Medical Branch 2 HR GLUCOSE TOLERANCE 2022-07-09 14:47:00 [facility] TEST Medical Branch 1 HR GLUCOSE TOLERANCE 2022-07-09 13:51:00 Umair Kaitren Murphy [facility] TEST Medical Branch GLUCOSE FASTING 2022-07-09 12:46:00 Kait Arzate [facility] [place] [facility] [place] POCT URINALYSIS W/O 2022-07-02 00:00:00 ArzateKait Jeffrey [facility] SPECIFIC GRAVITY Medical Branch NEMB PATIENT FINANCIAL 2022-06-03 13:07:04 [facility] [place] [facility] POCT URINALYSIS W/O 2022-06-03 00:00:00 Umair Kaitren Murphy [facility] SPECIFIC GRAVITY Medical Branch INSURANCE CORRESPONDENCE 2022-06-02 05:01:00 Doctor Unassigned, [facility] [place] [facility] INSURANCE CORRESPONDENCE 2022-05-27 05:01:00 Doctor Unassigned, [facility] [place] [facility] [place] <14 WEEKS US 2022-05-04 17:43:46 Kait Arzate [facility] LIMITED Medical Branch ASSIGNMENT OF BENEFITS 2022-05-04 15:34:55 [facility] [place] [facility] POCT TEST 2022-05-04 00:00:00 ArzateKait Jeffrey [facility] [place] POCT URINALYSIS W/O 2022-05-04 00:00:00 ArzateKait [facility] SPECIFIC GRAVITY Medical Branch URINALYSIS 2021-01-17 15:15:00 [facility] [place] COMP. METABOLIC PANEL 2021-01-17 15:08:00 Zohreh Alvarado [facility] ([id number]) Medical [place] CBC WITH DIFF 2021-01-17 15:08:00 Gee [facility] Encounters Start End Encounter Admission Attending Care Care Encounter Source Date/Time Date/Time Type Type Clinicians Facility Department ID 2022-07-28 2022-07-28 Routine ArzateDiannaen [facility] [id number] Univers 14:30:00 14:45:21 Cam [place] 350.1.13.10 ity [place] [id number] Tn dical [facility] [address] [facility] 2022-07-28 2022-07-28 Laminator Preforms Anjelica, Adc [facility] 1.2 .840.114 [id number] Univers 13:30:00 14:30:00 Visit Andriy BillyTON 350.1.13. 10 ity [place] [id number] [facility] [address] [facility] 2022-07-28 2022-07-28 Outpatient R WENCESLAO [facility] [id number] Univers 13:30:00 13:54:57 ANDRIY gaston [facility] 2022-07-24 2022-07-24 Telephone Kait Arzate [facility] 1..840.114 10 [id number] Univers 00:00:00 00:00:00 Jeffrey CHOU 350.1.13.10 i ty [facility] [place] [id number] [facility] [address] [facility] 2022-07-09 2022-07-09 Laminator Preforms Karolyn, Adc [facility] 1.2.8 40.114 [id number] Univers 07:45:00 08:00:00 Visit Kait Arzate 350.1.13.10 [facility] [place] [id number] [facility] [address] [facility] 2022-07-09 2022-07-09 Outpatient R KAIT ARZATE [facility] [id number] Univers 07:45:00 07:45:00 ity [facility] 2022-07-07 2022-07-07 Telephone Kait Arzate NECHARISSE 1.2.840.114 10 [id number] Univers 00:00:00 00:00:00 Jeffrey [place] 350.1.13.10 i ty [place] [id number] Tn dical NAL [address] [facility] 2022-07-03 2022-07-03 Telephone Kait Arzate [facility] 1.2.840.114 10 [id number] Univers 00:00:00 00:00:00 Jeffrey CHOU 350.1.13.10 i ty [place] [id number] Tn dical NAL [address] [facility] 2022-07-02 2022-07-02 Laminator Preforms 2, Adc Lab [facility] 1.2.840.114 [id number] Univers 16:15:00 16:30:00 Visit Umair Kaitren CHOU 350.1.13.10 ity [place] [id number] [facility] N[place] [address] [facility] 2022-07-02 2022-07-02 Outpatient R KAIT ARZATE [facility] [id number] Univers 15:00:00 16:05:15 ity of [facility] 2022-07-02 2022-07-02 Routine Umair [facility] 1.2.568.748 [id number] Univers 15:00:00 16:05:15 Jeffrey [place] 350.1.13.10 ity of [place] [id number] Tn dic[address] 2022-06-16 2022-06-16 [facility] 1.2.135.566 [id number] Univers 00:00:00 00:00:00 Secure Msg Jolene DÍAZ 350.1.13.10 ity of [place] [facility] [id number] [address] 2022-06-05 2022-06-05 Telephone Esme [facility] 1.2.840.114 10 [id number] Univers 00:00:00 00:00:00 Amalia CHOU 350.1.13.10 i ty [place] [id number] Tn dical NAL [address] [facility] 2022-06-03 2022-06-03 Routine Kait Arzate [facility] 1.2.978.588 [id number] Univers 11:15:00 11:15:00 Cam [place] 350.1.13.10 ity of Visit [facility] [place] [id number] Tn dical NAL [address] [facility] 2022-06-03 2022-06-03 Outpatient R KAIT ARZATE [facility] [id number] Univers 11:15:00 10:53:43 ity of [facility] 2022-06-03 2022-06-03 Laminator Preforms Karolyn, [facility] Main [facility] 1.2.8 40.114 [id number] Univers 08:15:00 08:30:00 Visit Kait Arzate Jeffrey CHOU 350.1.13.10 ity of [facility] [place] [id number] Tn dical [facility] [address] [facility] 2022-06-03 2022-06-03 Orders Doctor DOUG 1.2.840.114 [id number] Univers 00:00:00 00:00:00 Only Unassigned, DIPTI 350.1.13.10 ity of [place] [facility] 4.2.7.2.686 [place] Antonio as [id number] [address] 2022-06-03 2022-06-03 Telephone Kait Arzate [facility] 1.2.840.114 10 [id number] Univers 00:00:00 00:00:00 Cam [place] 350.1.13.10 i ty [place] [id number] Tn dical NAL [address] [facility] 2022-06-03 2022-06-03 Case Kait Arzate [facility] 1.2.639.382 [id number] Univers 00:00:00 00:00:00 Management Cam [place] 350.1.13.10 ity of [facility] [place] [id number] Tn dical NAL [address] [facility] 2022-06-02 2022-06-02 Telephone Kait Arzate [facility] 1.2.840.114 10 [id number] Univers 00:00:00 00:00:00 Cam [place] 350.1.13.10 i ty [place] [id number] Tn dical NAL [address] [facility] 2022-06-02 2022-06-02 Orders Doctor DOUG 1.2.840.114 [id number] Univers 00:00:00 00:00:00 Only Unassigned, DIPTI 350.1.13.10 ity of [place] [facility] 4.2.7.2.686 [place] Antonio as [id number] [address] 2022-05-27 2022-05-27 Orders Doctor DOUG 1.2.840.114 [id number] Univers 00:00:00 00:00:00 Only Unassigned, DIPTI 350.1.13.10 ity of [place] [facility] 4.2.7.2.686 Juan Antonio as [id number] [address] 2022-05-06 2022-05-06 Case Kait Arzate [facility] 1.2.059.738 [id number] Univers 00:00:00 00:00:00 Management Jeffrey CHOU 350.1.13.10 ity [facility] 4[place] [id number] Tn dical NAL [address] [place] [address] 2022-05-05 2022-05-05 Outpatient R LEE [facility] [id number] Univers 14:00:00 14:00:00 ROSANNA ity of [facility] 2022-05-05 2022-05-05 Telephone Kait Arzate [facility] 1.2.840.114 10 [id number] Univers 00:00:00 00:00:00 Jeffrey CHOU 350.1.13.10 i ty [facility] 4[place] [id number] Tn dical NAL [address] [facility] 2022-05-04 2022-05-04 Laminator Preforms [facility] Main [facility] 1.2.8 40.114 [id number] Univers 12:45:00 13:00:00 Visit Kait Arzate 350.1.13.10 ity [facility] [place] [id number] Me dical NAL [address] [facility] 2022-05-04 2022-05-04 Outpatient R KAIT ARZATE [facility] [id number] Univers 10:00:00 11:55:20 ity of [facility] 2022-05-04 2022-05-04 Initial Kait Arzate [facility] 1.2.823.265 [id number] Univers 10:00:00 10:30:00 Cam EFFIE 350.1.13.10 ity of [place] [id number] Tn dical NAL [address] [facility] 2022-05-04 2022-05-04 Orders Doctor DOUG 1.2.840.114 [id number] Univers 00:00:00 00:00:00 Only Unassigned, DIPTI 350.1.13.10 ity of [place] [facility] 4.2.7.2.686 Juan Antonio as [id number] [address] 2021-01-21 2021-01-21 Telephone Gee [facility] 1.2.223.850 [id number] Univers 00:00:00 00:00:00 Zohreh HEALTH 350.1.13.10 it y of [place] 4.2.7.2.686 Juan Antonio as ALONSO?BLEA [id number] [facility] [address] [facility] OFFICE [facility] 2021-01-17 2021-01-17 Laminator Preforms Lab, Ang - Db [facility] 1.2.840.1 14 [id number] Univers 09:44:12 09:59:12 Visit Zohreh Alvarado 350.1.13.10 ity of [place] 4.2.7.2.686 Juan Antonio as ALONSO?BLEA [id number] [facility] [address] [facility] OFFICE [facility] 2021-01-17 2021-01-17 Office Gee [facility] 1.2.840.114 [id number] Univers 09:00:45 09:43:55 Visit Zohreh HEALTH 350.1.13.10 it [facility] 4.2.7.2.686 Juan Antonio as ALONSO?BLEA [id number] [facility] [address] [facility] OFFICE [facility] 2021-01-17 2021-01-17 Outpatient R DREWNE, [facility] [id number] Univers 09:00:00 09:43:55 ZOHREH gaston [facility] 2021-01-17 2021-01-17 Outpatient Duarte ALVARADO [facility] [id number] Univers 09:00:00 09:43:55 ZOHREH gaston [facility] 2020-03-22 2020-03-22 Outpatient JAZZY WEEKS [facility] [id number] Univers 13:30:00 13:30:00 [facility] Results Test Description Test Time Test Comments Results Result Comments Source POCT URINALYSIS W/O SPECIFIC GRAVITY 2022-07-28 19:30:00 Test Item Value Reference Range Interpretation Comme nts POCT PH U (test code = 3254) n/a 5-8 POCT U LEUK EST (test code = 3263) n/a Negative - Negative POCT U NIT (test code = 3262) n/a Negative - Negative POCT U PROT (test code = 3259) negative Negative - Negative POCT U GLU (test code = 3256) 50 Negative - Negative POCT U KETONE (test code = 3258) n/a Negative - Negative POCT U BLD (test code = 3257) n/a Negative - Negative [facility] HR GLUCOSE TOLERANCE [id number] 15:43:51 Test Item Value Reference Range Interpretation Comments GLUC 2 HR (test code = 8763691713) 127 mg/dL 70-120 H Lab Interpretation (test code = Abnormal 63296-6) [facility] HR GLUCOSE TOLERANCE [id number] 15:17:48 Test Item Value Reference Range Interpretation Comments GLUC 1 HR (test code = 7211144898) 104 mg/dL 120-170 L Lab Interpretation (test code = Abnormal 21373-5) [facility] [id number] 13:29:56 Test Item Value Reference Range Interpretation Comments GLU FASTNG (test code = 6674149731) 88 mg/dL 70-110 Lab Interpretation (test code = Normal 01073-2) [facility] W/O SPECIFIC [id number] 20:50:00 Test Item Value Reference Range Interpretation Comments POCT PH U (test code = 3254) n/a 5-8 POCT U LEUK EST (test code = n/a Negative - Negative 3263) POCT U NIT (test code = 3262) n/a Negative - Negative POCT U PROT (test code = 3259) Negative Negative - Negative POCT U GLU (test code = 3256) Normal Negative - Negative POCT U KETONE (test code = 3258) n/a Negative - Negative POCT U BLD (test code = 3257) n/a Negative - Negative [facility] URINALYSIS W/O SPECIFIC [id number] 16:06:00 Test Item Value Reference Range Interpretation Comments POCT PH U (test code = 3254) n/a 5-8 POCT U LEUK EST (test code = n/a Negative - Negative 3263) POCT U NIT (test code = 3262) n/a Negative - Negative POCT U PROT (test code = 3259) Negative Negative - Negative POCT U GLU (test code = 3256) Normal Negative - Negative POCT U KETONE (test code = 3258) n/a Negative - Negative POCT U BLD (test code = 3257) n/a Negative - Negative [facility] [id number] 17:03:00 Test Item Value Reference Range Interpretation Comments POCT PREG (test code = 1605) Positive On board controls acceptable with C Yes Line (test code = 3574) POCT PREG LOT # (test code = 3575) POCT PREG TEST DATE (test code = 3576) [facility] URINALYSIS W/O SPECIFIC [id number] 17:01:00 Test Item Value Reference Range Interpretation Comments POCT PH U (test code = 3254) n/a 5-8 POCT U LEUK EST (test code = n/a Negative - Negative 3263) POCT U NIT (test code = 3262) n/a Negative - Negative POCT U PROT (test code = 3259) Negative Negative - Negative POCT U GLU (test code = 3256) Normal Negative - Negative POCT U KETONE (test code = 3258) n/a Negative - Negative POCT U BLD (test code = 3257) n/a Negative - Negative [facility] WITH [id number] 19:07:17 Test Item Value Reference Range Interpretation Comments WBC (test code = See_Comment [Automated 6690-2) message] The sy stem which generated this result transmitted reference range : 4.30 - 11.10 10*3/?L. The reference range was not used to interpret this result as normal/abnormal . RBC (test code = See_Comment [Automated 789-8) message] The sy stem which generated this result transmitted reference range : 3.93 - 5.25 10*6/?L. The reference range was not used to interpret this result as normal/abnormal . HGB (test code = 13.3 g/dL 11.6-15.0 718-7) HCT (test code = 40.7 % 35.7-45.2 4544-3) MCV (test code = 87.2 fL 80.6-95.5 787-2) MCH (test code = 28.5 pg 25.9-32.8 785-6) MCHC (test code = 32.7 g/dL 31.6-35.1 786-4) RDW-SD (test code = 41.0 fL 39.0-49.9 79073-6) RDW-CV (test code = 13.0 % 12.0-15.5 788-0) PLT (test code = See_Comment [Automated 777-3) message] The sy stem which generated this result transmitted reference range : 166 - 358 10*3/ ?L. The reference r rob was not used to interpret this result as normal/abnormal . MPV (test code = 11.1 fL 9.5-12.9 90332-9) NRBC/100 WBC (test See_Comment [Automat ed code = 9663479430) message] The system which generated this result transmitted reference range : 0.0 - 10.0 /100 WBCs. The refer ence range was not u sed to interpret th is result as normal/abnormal . NRBC x10^3 (test code <0.01 See_Comment [Auto mated = 1118181696) message] The s ystem which generated this result transmitted reference range : 10*3/?L. The reference range was not used to interpret this result as normal/abnormal . GRAN MAT (NEUT) % 69.0 % (test code = 770-8) IMM GRAN % (test code 0.40 % = 1082858556) LYMPH % (test code = 23.6 % 736-9) MONO % (test code = 4.8 % 5905-5) EOS % (test code = 1.3 % 713-8) BASO % (test code = 0.9 % 706-2) GRAN MAT x10^3(ANC) 6.15 10*3/uL 1.88-7.09 (test code = 6721468239) IMM GRAN x10^3 (test 0.04 10*3/uL 0.00-0.06 code = 5495479883) LYMPH x10^3 (test code 2.11 10*3/uL 1.32-3.29 = 731-0) MONO x10^3 (test code 0.43 10*3/uL 0.33-0.92 = 742-7) EOS x10^3 (test code = 0.12 10*3/uL 0.03-0.39 711-2) BASO x10^3 (test code 0.08 10*3/uL 0.01-0.07 H = 704-7) Lab Interpretation Abnormal (test code = 43038-0) [facility][id number][facility]-17 19:02:34 Test Item Value Reference Range Interpretation Comments NA (test code = 138 mmol/L 135-145 9602809240) K (test code = 4.0 mmol/L 3.5-5.0 4945871602) CL (test code = 104 mmol/L 98-108 7639892619) CO2 TOTAL (test code 28 mmol/L 23-31 = 3915067999) AGAP (test code = 2-16 5966438164) BUN (test code = 12 mg/dL 7-23 7451584103) GLUCOSE (test code = 90 mg/dL 70-110 7883864573) CREATININE (test code 0.78 mg/dL 0.50-1.04 = 5413001566) TOTAL BILI (test code 0.5 mg/dL 0.1-1.1 = 5837843706) CALCIUM (test code = 10.3 mg/dL 8.6-10.6 7446548587) T PROTEIN (test code 7.2 g/dL 6.3-8.2 = 5006117354) ALBUMIN (test code = 4.3 g/dL 3.5-5.0 3520863447) ALK PHOS (test code = 63 U/L 34-122 0573922607) ALTv (test code = 17 U/L 5-35 1742-6) AST(SGOT) (test code 24 U/L 13-40 = 3863169456) eGFR (test code = mL/min/1.73m2 4657140329) KISHA (test code = KISHA) Association of Glomerular Filtration Rate (GFR) and Staging of Kidney Disease* + + +- +| GFR (mL/min/1.73 m2) ?| With Kidney Damage ?| ?Without Kidney Damage+ ------+ ----+ ------+| ?>90 ?| ?Stage one ?| ? Normal ?+ -+ + -+| ?60-89 ?| ?Stage two ?| ? Decreased GFR ? + + +- +| ?30-59 ?| ?Stage three ?| ? Stage three ? + + +- +| ?15-29 ?| ?Stage four ? | ? Stage four ?+ -+ + -+| ?<15 (or dialysis) ? ?| ?Stage five ? | ? Stage five ?+ -+ + -+ *Each stage assumes the associated GFR level has been in effect for at least three months. ?Stages 1 to 5, with or without kidney disease, indicate chronic kidney disease. Notes: Determination of stages one and two (with eGFR >59mL/min/1.73 m2) requires estimation of kidney damage for at least three months as defined by structural or functional abnormalities of the kidney, manifested by either:Pathological abnormalities or Markers of kidney damage (including abnormalities in the composition of the blood or urine or abnormalities in imaging tests). [facility]"
[2022-07-31] MEDS ORDERED: predniSONE 20 MG TAB ONE (23:26)
--- NOTE | 2022-07-31 23:34 | EDPHYS ---
Physician Documentation [facility] Name: Marisela Molina Age: 27 yrs Sex: Female : 1995 Arrival Date: 07/31/2022 Time: 22:41 Bed 10 Private MD: ED Physician Yaya Lugo HPI: 07/31 23:32 This 27 yrs old Female presents to ER via Ambulatory with complaints of 23 WEEKS snw PREGNATN, LOWER EXTREMITIES PAIN. 23:32 Onset: The symptoms/episode began/occurred suddenly. Associated signs and symptoms: snw Pertinent positives: pain and swelling in legs. The patient has not experienced similar symptoms in the past, but family has similar symptoms. Dr. Block (Ob) three days ago. 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 - Social history:: Smoking status: Patient denies any tobacco usage or history of. ROS: 23:31 Constitutional: Negative for fever, chills, and weight loss, Eyes: Negative for injury, snw pain, redness, and discharge, ENT: Negative for injury, pain, and discharge, Neck: Negative for injury, pain, and swelling, Cardiovascular: Negative for chest pain, palpitations, and edema, Respiratory: Negative for shortness of breath, cough, wheezing, and pleuritic chest pain, Abdomen/GI: Negative for abdominal pain, nausea, vomiting, diarrhea, and constipation, Back: Negative for injury and pain, : Negative for injury, bleeding, discharge, and swelling, MS/Extremity: Negative for injury and deformity, Neuro: Negative for headache, weakness, numbness, tingling, and seizure, Psych: Negative for depression, anxiety, suicide ideation, homicidal ideation, and hallucinations. 23:31 Abdomen/GI: Negative for abdominal pain, nausea, vomiting, diarrhea, and constipation, + movements, no vag bleeding 23:31 Skin: Positive for burn, of the front of arms and legs, pain increases with dependence and standing. mild edema, legs turn a little blue with pressure. Exam: 23:30 Constitutional: This is a well developed, well nourished patient who is awake, alert, snw and in no acute distress. Head/Face: Normocephalic, atraumatic. Eyes: Pupils equal round and reactive to light, extra-ocular motions intact. Lids and lashes normal. Conjunctiva and sclera are non-icteric and not injected. Cornea within normal limits. Periorbital areas with no swelling, redness, or edema. ENT: Nares patent. No nasal discharge, no septal abnormalities noted. Tympanic membranes are normal and external auditory canals are clear. Oropharynx with no redness, swelling, or masses, exudates, or evidence of obstruction, uvula midline. Mucous membranes moist. Neck: Trachea midline, no thyromegaly or masses palpated, and no cervical lymphadenopathy. Supple, full range of motion without nuchal rigidity, or vertebral point tenderness. No Meningismus. Chest/axilla: Normal chest wall appearance and motion. Nontender with no deformity. No lesions are appreciated. Cardiovascular: Regular rate and rhythm with a normal S1 and S2. No gallops, murmurs, or rubs. Normal PMI, no JVD. No pulse deficits. Respiratory: Lungs have equal breath sounds bilaterally, clear to auscultation and percussion. No rales, rhonchi or wheezes noted. No increased work of breathing, no retractions or nasal flaring. Abdomen/GI: Soft, non-tender, with normal bowel sounds. Gravid Back: No spinal tenderness. No costovertebral tenderness. Full range of motion. Neuro: Awake and alert, GCS 15, oriented to person, place, time, and situation. Cranial nerves II-XII grossly intact. Motor strength 5/5 in all extremities. Sensory grossly intact. Cerebellar exam normal. Normal gait. Psych: Awake, alert, with orientation to person, place and time. Behavior, mood, and affect are within normal limits. 23:30 Skin: Appearance: normal except for affected area, front of legs and arms with 1st degree sunburn, mild edema. Vital Signs: 23:14 Pulse 102; Resp 16; Temp 98.4(O); Pulse Ox 100% ; Weight 94.8 kg; Height 5 ft. 6 in. ; kd3 23:15 BP 147 / 86; kd3 23:21 BP 137 / 82; kd3 23:14 Body Mass Index 33.73 (94.80 kg, 167.64 cm) kd3 MDM: 23:14 Patient medically screened. snw 23:34 Differential diagnosis: burn, pain. Data reviewed: vital signs, nurses notes. snw Counseling: I had a detailed discussion with the patient and/or guardian regarding: the historical points, exam findings, and any diagnostic results supporting the discharge/admit diagnosis, the need for outpatient follow up, for definitive care. Special discussion: Based on the history and exam findings, there is no indication for further emergent testing or inpatient evaluation. I discussed with the patient/guardian the need to see the OB Gyne specialist for further evaluation of the symptoms. I discussed with the patient/guardian the need to see the primary care provider for further evaluation of the symptoms. ED course: discussed risk of labor from dehydration/infection. Administered Medications: 23:20 Drug: predniSONE PO 20 mg Route: PO; kd3 23:38 Follow up: Response: No adverse reaction kd3 Disposition Summary: 07/31/22 23:34 Discharge Ordered Location: Home snw Condition: Stable snw Diagnosis - Sunburn of first degree snw Followup: snw - With: Emergency Department - When: As needed - Reason: Followup: snw - With: Private Physician - When: 2 - 3 days - Reason: Recheck today's complaints, Continuance of care, Re-evaluation by your physician Discharge Instructions: - Discharge Summary Sheet snw - Sunburn, Adult snw - Rehydration, Adult snw Forms: - Medication Reconciliation Form snw - Thank You Letter snw - Antibiotic Education snw - Prescription Opioid Use snw Prescriptions: - Prednisone 20 mg Oral Tablet - take 2 tablets by ORAL route once daily for 5 days; 10 tablet; Refills: 0, snw Product Selection Permitted Signatures: Guerita Woods FNP-C STUDENT FINANCIAL AID MANAGER-Csnw Tiffani Jackson, RN RN kd3
--- NOTE | 2022-07-31 23:34 | ER ---
Nurse's Notes [facility] Name: Marisela Molina Age: 27 yrs Sex: Female : 1995 Arrival Date: 07/31/2022 Time: 22:41 Bed 10 Private MD: Diagnosis: Sunburn of first degree Presentation: 07/31 23:15 Chief complaint: Patient states: I got a sunburn yesterday and today when i get up, i kd3 have pain in the back of my legs. When i stand, my feet seem to get bluish. Ebola Screen: No symptoms or risks identified at this time. Initial Sepsis Screen: Does the patient meet any 2 criteria? No. Patient's initial sepsis screen is negative. Does the patient have a suspected source of infection? No. Patient's initial sepsis screen is negative. Risk Assessment: Do you want to hurt yourself or someone else? Patient reports no desire to harm self or others. Onset of symptoms was July 31, 2022. 23:15 Method Of Arrival: Ambulatory kd3 23:15 Acuity: NING 3 kd3 23:18 Coronavirus screen: Vaccine status: Patient reports being unvaccinated. kd3 Triage Assessment: 23:17 General: Appears uncomfortable, Behavior is calm, cooperative. Pain: Complains of pain kd3 in right leg and left leg. Neuro: Level of Consciousness is awake, alert, obeys commands, Oriented to person, place, time, situation. Cardiovascular: Patient's skin is warm and dry. Respiratory: Airway is patent Trachea midline Respiratory effort is even, unlabored, Respiratory pattern is regular, symmetrical. 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 - Social history:: Smoking status: Patient denies any tobacco usage or history of. Screenin:22 [facility] ED Fall Risk Assessment (Adult) History of falling in the last 3 months, kd3 including since admission No falls in past 3 months (0 pts) Confusion or Disorientation No (0 pts) Intoxicated or Sedated No (0 pts) Impaired Gait No (0 pts) Mobility Assist Device Used No (0 pt) Altered Elimination No (0 pt) Score/Fall Risk Level 0 - 2 = Low Risk Maintained a safe environment. Abuse screen: Denies threats or abuse. Denies injuries from another. Nutritional screening: No deficits noted. Tuberculosis screening: No symptoms or risk factors identified. Assessment: 23:22 General: Appears uncomfortable, Behavior is calm, cooperative. Pain: Complains of pain kd3 in left leg and right leg. Neuro: Level of Consciousness is awake, alert, obeys commands, Oriented to person, place, time, situation. Cardiovascular: Patient's skin is warm and dry. Respiratory: Airway is patent Trachea midline Respiratory effort is even, unlabored, Respiratory pattern is regular, symmetrical. Vital Signs: 23:14 Pulse 102; Resp 16; Temp 98.4(O); Pulse Ox 100% ; Weight 94.8 kg; Height 5 ft. 6 in. ; kd3 23:15 BP 147 / 86; kd3 23:21 BP 137 / 82; kd3 23:14 Body Mass Index 33.73 (94.80 kg, 167.64 cm) kd3 ED Course: 22:47 Patient arrived in ED. ag3 22:50 Guerita Woods FNP-C [facility]. snw 22:50 Yaya Lugo MD is Attending Physician. snw 23:17 Triage completed. kd3 23:17 Arm band placed on right wrist. kd3 23:21 Tiffani Jackson RN is Primary Nurse. kd3 23:38 No provider procedures requiring assistance completed. Patient did not have IV access kd3 during this emergency room visit. 23:39 Patient has correct armband on for positive identification. kd3 Administered Medications: 23:20 Drug: predniSONE PO 20 mg Route: PO; kd3 23:38 Follow up: Response: No adverse reaction kd3 Medication: 23:22 VIS not applicable for this client. kd3 Outcome: 23:34 Discharge ordered by . snw 23:38 Discharged to home ambulatory. kd3 23:38 Condition: stable 23:38 Discharge instructions given to patient, family, Instructed on discharge instructions, follow up and referral plans. Demonstrated understanding of instructions, follow-up care, medications, Prescriptions given X 1. 23:39 Patient left the ED. kd3 Signatures: Guerita Woods FNP-C CORPORATE COMPLIANCE OFFICER-CsnTorie Roach ag3 Tiffani Jackson, RN RN kd3
[2022-07-31 23:53] VITALS: TEMP 98.4; O2SAT 100
[2022-08-01 00:26] VITALS: BP 137/82
== END 2022-07-31 23:39 | disposition home or self-care (01) ==
LOC: ER 22:41
DX: O99.712 Diseases of the skin and subcutaneous tissue complicating pregnancy, second trimester (principal); L55.0 Sunburn of first degree; Z3A.23 23 weeks gestation of pregnancy
CPT/HCPCS: J7512